=== PATIENT | male | born 1980 | race Two or more races ===

== ENCOUNTER 2019-09-12 13:37 | Emergency (ER) | payer OTHER ==
[~2019-09-12] VITALS: Ht 185.4 cm; Wt 104.3 kg
[2019-09-12 14:01] VITALS: BP 130/81
[2019-09-12] MEDS ORDERED: TETANUS-DIPTH-ACEL PERTUSSIS 0.5ML SYR Tdap IM ONE (16:00)
== END 2019-09-12 16:13 | disposition home or self-care (01) ==
LOC: ER 13:37
DX: S41.111A Laceration without foreign body of right upper arm, initial encounter (principal); R42 Dizziness and giddiness; W26.8XXA Contact with other sharp object(s), not elsewhere classified, initial encounter; Y93.89 Activity, other specified; Y92.89 Other specified places as the place of occurrence of the external cause; Y99.8 Other external cause status
CPT/HCPCS: 12002; 90471; 90715